=== PATIENT | female | born 1960 | race Caucasian/White ===

== ENCOUNTER 2016-09-25 07:59 | Inpatient (IN) | payer OTHER ==
[~2016-09-25] VITALS: Ht 165.1 cm; Wt 62.2 kg
[~2016-09-25 07:59] MED LIST: AMIO200T42 PO; ASPI-496 PO; FURO-92 PO; LISI1TAB3 PO; LORA10TA62 PO; MULT1TAB10 PO; OXYC1TAB7 PO; POTA10TA90 PO; POTA20TA89 PO; WARF2.5T PO
[2016-09-25] MEDS ORDERED: SODIUM CHLORIDE 0.9% 1,000 ML IV ONE (08:24)
[2016-09-25] MEDS ORDERED: CEFTRIAXONE 1,000 MG in SODIUM CHLORIDE 0.9% 50 ML IVPB ONE (08:30)
[2016-09-25] MEDS ORDERED: SODIUM CHLORIDE FLUSH 10ML SYR IVF ONE (08:30)
[2016-09-25] MEDS ORDERED: SODIUM CHLORIDE 0.9% 1,000ML IVBOLUS ONE (08:30)
[2016-09-25] MEDS ORDERED: CEFTRIAXONE PMX 1GM/50ML 50 ML IVPB ONE (09:00)
[2016-09-25] MEDS ORDERED: CEFTRIAXONE PMX 1GM/50ML 50 ML ONE (09:05)
[2016-09-25 09:10] LABS: BLOOD UREA NITROGEN 12 mg/dL (7-18)
[2016-09-25] MEDS ORDERED: MAGN300C PO (09:58)
[2016-09-25] MEDS ORDERED: SODIUM CHLORIDE FLUSH 10ML SYR IVF PRN (11:00)
[2016-09-25] MEDS ORDERED: CLINDAMYCIN PMX 900MG/50ML 50 ML IV SCH (11:30)
[2016-09-25] MEDS ORDERED: PHARMACY MAY ADJ FOR RENAL FX MC PRN (12:00)
[2016-09-25] MEDS ORDERED: GENTAMICIN IV SCH (12:00)
[2016-09-25] MEDS ORDERED: ONDANSETRON 2MG/ML, 2ML IVPush PRN (12:00)
[2016-09-25] MEDS ORDERED: POLYETHYLENE GLYCOL 17 GM PACKET PO PRN (12:00)
[2016-09-25] MEDS ORDERED: GUAIFENESIN/DM 200-20MG, 10ML UDC PO PRN (12:00)
[2016-09-25] MEDS ORDERED: morphine SULFATE 10 MG/ML, 1ML IVPush PRN (12:00)
[2016-09-25] MEDS ORDERED: BISACODYL 10 MG SUPP PR PRN (12:00)
[2016-09-25] MEDS ORDERED: IBUPROFEN 200 MG TABLET PO PRN (12:00)
[2016-09-25] MEDS ORDERED: ONDANSETRON ODT 4 MG PO PRN (12:00)
[2016-09-25] MEDS ORDERED: DOCUSATE 100 MG CAPSULE PO PRN (12:00)
[2016-09-25] MEDS ORDERED: HYDROcodone/APAP 5/325 TABLET PO PRN (12:00)
[2016-09-25] MEDS ORDERED: PHARMACOKINETIC CONSULTATION MC ONE (12:30)
[2016-09-25] MEDS ORDERED: PHARMACOKINETIC MONITORING MC PRN (12:30)
[2016-09-25 13:02] VITALS: BP 108/70
[2016-09-25] MEDS: PENICILLIN GK 4,000,000 UNITS in DEXTROSE 5% 100 ML IV SCH ×3 (13:02→22:13)
[2016-09-25] MEDS: GENTAMICIN 300 MG in SODIUM CHLORIDE 0.9% 100 ML IV SCH (14:10)
[2016-09-25] MEDS: ENOXAPARIN 40 MG/0.4 ML SQ SCH (14:12)
[2016-09-25 21:00] VITALS: BP 100/61
[2016-09-25] MEDS: MAGNESIUM OXIDE 400 MG TABLET PO SCH (22:13)
[2016-09-25] MEDS: POTASSIUM CHLORIDE 20 MEQ TAB.ER.PRT PO SCH (22:13)
[2016-09-26] MEDS: PENICILLIN GK 4,000,000 UNITS in DEXTROSE 5% 100 ML IV SCH ×4 (01:25→14:00)
[2016-09-26 01:34] VITALS: BP 102/62
[2016-09-26 05:12] LABS: BLOOD UREA NITROGEN 11 mg/dL (7-18)
[2016-09-26 07:19] VITALS: BP 104/66
[2016-09-26] MEDS: HYDROCHLOROTHIAZIDE 12.5 MG CAPSULE PO SCH (12:06)
[2016-09-26] MEDS: ASPIRIN 81 MG TABLET EC PO SCH (12:06)
[2016-09-26] MEDS: LISINOPRIL 10 MG TABLET PO SCH (12:07)
[2016-09-26] MEDS: ENOXAPARIN 40 MG/0.4 ML SQ SCH (12:30)
[2016-09-26 12:43] VITALS: BP 131/83
[2016-09-26] MEDS: GENTAMICIN 300 MG in SODIUM CHLORIDE 0.9% 100 ML IV SCH (15:30)
[2016-09-26] MEDS ORDERED: CEFTRIAXONE IV SCH (16:00)
[2016-09-26] MEDS ORDERED: CEFTRIAXONE PMX IV SCH (16:00)
[2016-09-26] MEDS: CEFTRIAXONE PMX 2GM/50ML 50 ML IV SCH (17:47)
[2016-09-26] MEDS: MAGNESIUM OXIDE 400 MG TABLET PO SCH (17:47)
[2016-09-26 19:17] VITALS: BP 117/72
[2016-09-26] MEDS: POTASSIUM CHLORIDE 20 MEQ TAB.ER.PRT PO SCH (20:53)
[2016-09-27] MEDS: SODIUM CHLORIDE 0.9% IV SCH ×2 (01:52→15:10)
[2016-09-27] MEDS: GENTAMICIN IV SCH ×2 (01:52→15:10)
[2016-09-27 01:57] VITALS: BP 91/60
[2016-09-27 05:34] LABS: BLOOD UREA NITROGEN 11 mg/dL (7-18)
[2016-09-27 06:00] VITALS: BP 100/65
[2016-09-27 07:57] VITALS: BP 114/71
[2016-09-27] MEDS: MAGNESIUM OXIDE 400 MG TABLET PO SCH (09:00)
[2016-09-27] MEDS: ASPIRIN 81 MG TABLET EC PO SCH (10:10)
[2016-09-27] MEDS: HYDROCHLOROTHIAZIDE 12.5 MG CAPSULE PO SCH (10:10)
[2016-09-27] MEDS: LISINOPRIL 10 MG TABLET PO SCH (10:10)
[2016-09-27] MEDS ORDERED: PROPOFOL 10 MG/ML, 20ML ONE (10:31)
[2016-09-27] MEDS: ENOXAPARIN 40 MG/0.4 ML SQ SCH (12:30)
[2016-09-27 14:18] VITALS: BP 120/65
[2016-09-27] MEDS: CEFTRIAXONE PMX 2GM/50ML 50 ML IV SCH (17:39)
[2016-09-27] MEDS: POTASSIUM CHLORIDE 20 MEQ TAB.ER.PRT PO SCH (19:34)
[2016-09-27 20:16] VITALS: BP 134/88
[2016-09-28] MEDS: GENTAMICIN IV SCH ×2 (02:23→15:00)
[2016-09-28] MEDS: SODIUM CHLORIDE 0.9% IV SCH ×2 (02:23→15:00)
[2016-09-28 02:29] VITALS: BP 100/58
[2016-09-28 06:00] LABS: BLOOD UREA NITROGEN 17 mg/dL (7-18)
[2016-09-28 06:04] LABS: ASPARTATE AMINO TRANSFERASE 15 U/L (15-37)
[2016-09-28 08:07] VITALS: BP 110/67
[2016-09-28] MEDS: MAGNESIUM OXIDE 400 MG TABLET PO SCH (09:00)
[2016-09-28] MEDS: ASPIRIN 81 MG TABLET EC PO SCH (09:15)
[2016-09-28] MEDS: LISINOPRIL 10 MG TABLET PO SCH (09:16)
[2016-09-28] MEDS: HYDROCHLOROTHIAZIDE 12.5 MG CAPSULE PO SCH (09:16)
[2016-09-28] MEDS: ENOXAPARIN 40 MG/0.4 ML SQ SCH (12:30)
[2016-09-28 14:00] VITALS: BP 134/88
[2016-09-28] MEDS: CEFTRIAXONE PMX 2GM/50ML 50 ML IV SCH (16:16)
[2016-09-28 19:30] VITALS: BP 131/81
[2016-09-28] MEDS: POTASSIUM CHLORIDE 20 MEQ TAB.ER.PRT PO SCH (21:36)
[2016-09-29 02:47] VITALS: BP 106/64
[2016-09-29] MEDS: SODIUM CHLORIDE 0.9% IV SCH ×2 (02:56→15:06)
[2016-09-29] MEDS: GENTAMICIN IV SCH ×2 (02:56→15:06)
[2016-09-29 05:39] LABS: BLOOD UREA NITROGEN 20 mg/dL (7-18)
[2016-09-29 08:17] VITALS: BP 127/82
[2016-09-29] MEDS: ASPIRIN 81 MG TABLET EC PO SCH (08:58)
[2016-09-29] MEDS: HYDROCHLOROTHIAZIDE 12.5 MG CAPSULE PO SCH (08:58)
[2016-09-29] MEDS: LISINOPRIL 10 MG TABLET PO SCH (08:58)
[2016-09-29] MEDS: MAGNESIUM OXIDE 400 MG TABLET PO SCH (11:18)
[2016-09-29] MEDS: ENOXAPARIN 40 MG/0.4 ML SQ SCH (11:24)
[2016-09-29] MEDS: CEFTRIAXONE PMX 2GM/50ML 50 ML IV SCH (16:20)
[2016-09-29 16:50] VITALS: BP 116/73
[2016-09-29 19:50] VITALS: BP 117/75
[2016-09-29] MEDS: POTASSIUM CHLORIDE 20 MEQ TAB.ER.PRT PO SCH (20:16)
[2016-09-30 01:14] VITALS: BP 99/62
[2016-09-30] MEDS: GENTAMICIN IV SCH ×2 (03:10→15:00)
[2016-09-30] MEDS: SODIUM CHLORIDE 0.9% IV SCH ×2 (03:10→15:00)
[2016-09-30 03:34] LABS: ASPARTATE AMINO TRANSFERASE 28 U/L (15-37); BLOOD UREA NITROGEN 20 mg/dL (7-18)
[2016-09-30 06:57] VITALS: BP 92/57
[2016-09-30 10:00] VITALS: BP 122/80
[2016-09-30] MEDS: ASPIRIN 81 MG TABLET EC PO SCH (10:01)
[2016-09-30] MEDS: HYDROCHLOROTHIAZIDE 12.5 MG CAPSULE PO SCH (10:01)
[2016-09-30] MEDS: LISINOPRIL 10 MG TABLET PO SCH (10:01)
[2016-09-30] MEDS: MAGNESIUM OXIDE 400 MG TABLET PO SCH (10:01)
[2016-09-30] MEDS: ENOXAPARIN 40 MG/0.4 ML SQ SCH (10:02)
[2016-09-30] MEDS: CEFTRIAXONE PMX 2GM/50ML 50 ML IV SCH (13:12)
[2016-09-30] MEDS ORDERED: LACT1CAP24 PO (14:03)
[2016-09-30] MEDS ORDERED: MAGN400T26 PO (14:03)
[2016-09-30 14:16] VITALS: BP 115/72
== END 2016-09-30 15:40 | disposition home or self-care (01) | DRG 289 ==
LOC: ED 09:42 → EDIP 10:47 → 3NE 11:55 → DCLOUNGE 09-30 15:24
PROVIDERS: ADMIT Internal Medicine; ATTEND Internal Medicine
PROC: 02HV33Z Insertion of Infusion Device into Superior Vena Cava, Percutaneous Approach (ICD-10-PCS; principal; 2016-09-29)
PROC: B5181ZA Fluoroscopy of Superior Vena Cava using Low Osmolar Contrast, Guidance (ICD-10-PCS; 2016-09-29)
DX: I33.0 Acute and subacute infective endocarditis (principal); R78.81 Bacteremia; I10 Essential (primary) hypertension; B95.4 Other streptococcus as the cause of diseases classified elsewhere; Z82.49 Family history of ischemic heart disease and other diseases of the circulatory system; Z83.3 Family history of diabetes mellitus; Z85.41 Personal history of malignant neoplasm of cervix uteri; Z86.79 Personal history of other diseases of the circulatory system; Z87.891 Personal history of nicotine dependence; Z90.710 Acquired absence of both cervix and uterus; Z95.2 Presence of prosthetic heart valve; Z95.3 Presence of xenogenic heart valve
CPT/HCPCS: 36415; 36569; 71020; 76937; 77001; 80048; 80053; 80170; 81003; 82040; 83605; 84145; 85025; 85651; 86140; 87040; 87077; 87181; 93005; 93306; 93312; 93325; 96361; 96365; J0696; J1650; J2540; J2704; C1751; J1580; J7030